=== PATIENT | male | born 1985 | race Caucasian/White ===

== ENCOUNTER 2019-07-23 18:35 | Emergency (ER) | payer MEDICAID ==
[~2019-07-23] VITALS: Ht 175.3 cm; Wt 83.9 kg
[2019-07-23 18:42] VITALS: BP_SYST 143
[2019-07-23] MEDS ORDERED: MORPHINE 2 MG/ML INJ. SYRINGE IM ONE (20:45)
[2019-07-23 22:00] VITALS: BP_SYST 138
== END 2019-07-23 22:00 | disposition home or self-care (01) ==
LOC: SED 18:35
DX: S86.812A Strain of other muscle(s) and tendon(s) at lower leg level, left leg, initial encounter (principal); Z88.0 Allergy status to penicillin; Z91.040 Latex allergy status; V18.4XXA Pedal cycle driver injured in noncollision transport accident in traffic accident, initial encounter; Y93.89 Activity, other specified; Y92.89 Other specified places as the place of occurrence of the external cause; Y99.8 Other external cause status
CPT/HCPCS: 29505; 36415; 70450; 72100; 73552; 73564; 73590; 86592; 96374; 99285; J2270

== ENCOUNTER 2019-09-25 22:48 | Inpatient (IN) | payer MEDICAID ==
[~2019-09-25] VITALS: Ht 175.3 cm; Wt 89.8 kg
[2019-09-25 23:20] VITALS: BP_SYST 128
--- NOTE | 2019-09-25 23:20 | NUR ---
Pt ambulatory to bed 7 for evaluation
--- NOTE | 2019-09-25 23:25 | NUR ---
Patient came with family. c/o lower abdominal pain x yesterday. Patient states " lower abdominal pain, no nausea , vomitting and diarrhea, lack of appetite for 2 days." A/O,X4, lower abdominal pain, pain rate 7/10, no Nausea, vomitting and diarrhea, vss.
--- NOTE | 2019-09-25 23:59 | NUR ---
ER Dr. Harris at bedside examining patient.
[2019-09-26] MEDS ORDERED: NACL 0.9% 1,000 ML IV ONE (00:06)
[2019-09-26] MEDS ORDERED: ONDANSETRON HCL 4 MG/2 ML VIAL IVP ONE (00:15)
[2019-09-26] MEDS ORDERED: MORPHINE 2 MG/ML INJ. SYRINGE IVP ONE (00:15)
--- NOTE | 2019-09-26 00:20 | NUR ---
# 20 gauge angiocath placed to LAC. Use of asceptic technique. Opsite placed over site. Blood return noted. Blood for lab drawn from site. Flushed with 10 cc of normal saline. No evidence of infiltration noted. Patient tolerated well.
[2019-09-26 00:48] LABS: BASOPHILS % (AUTO) 0.2 % (0.0-2.0); HEMATOCRIT 47.5 % (36-54); LYMPHOCYTES # (AUTO) 1.8 K/uL (1.0-5.5); LYMPHOCYTES % (AUTO) 10.2 % (20.5-51.5); MEAN CORPUSCULAR HEMOGLOBIN 30 pg (27-31); MEAN CORPUSCULAR HGB CONC 34 % (32-36); MEAN CORPUSCULAR VOLUME 90 fL (79.0-98.0); MONOCYTES # (AUTO) 1.5 K/uL (0.0-1.0); MONOCYTES % (AUTO) 8.4 % (1.7-9.3); NEUTROPHILS # (AUTO) 14.1 K/uL (1.8-7.7); NEUTROPHILS % (AUTO) 81.2 % (40.0-70.0); PLATELET COUNT (AUTO) 229 K/uL (130-430); RED CELL DISTRIBUTION WIDTH 13.4 % (9.0-15.0); WHITE BLOOD COUNT (AUTO) 17.4 K/uL (4.8-10.8)
[2019-09-26 00:51] LABS: BILIRUBIN,URINE 1+ (NEGATIVE); CLARITY/URINE CLEAR (CLEAR); COLOR,URINE YELLOW (YELLOW); GLUCOSE,URINE NEGATIVE (NEGATIVE); KETONES,URINE 1+ (NEGATIVE); LEUKOCYTE ESTERASE ,URINE 1+ (NEGATIVE); NITRITE, URINE NEGATIVE (NEGATIVE); PROTEIN URINE 1+ (NEGATIVE)
[2019-09-26 01:01] LABS: BLOOD, URINE TRACE (NEGATIVE)
[2019-09-26 01:04] LABS: CALCIUM 9.1 mg/dL (8.4-11.0); CREATININE 1.19 mg/dL (0.55-1.30); POTASSIUM 3.3 mmol/L (3.5-5.1)
[2019-09-26 01:05] LABS: BACTERIA,URINE FEW /HPF (None Seen)
[2019-09-26 01:09] LABS: ALBUMIN 3.9 g/dL (3.4-4.8); TOTAL BILIRUBIN 2.4 mg/dL (0.0-1.0)
--- NOTE | 2019-09-26 02:38 | NUR ---
Patient resting quietly. No acute distress noted. Vital signs within normal range.
--- NOTE | 2019-09-26 04:42 | NUR ---
Patient came back from CT scan.
--- NOTE | 2019-09-26 06:12 | NUR ---
ER Dr. Scherer at bedside examining patient, explained procedure/surgery and treatment plan.
[2019-09-26] MEDS ORDERED: D5/0.45 NS 1,000 ML IV SCH (06:15)
--- NOTE | 2019-09-26 06:18 | NUR ---
Patient will be admitted to care of Dr. Cleveland. Admitted to M/S unit. Will go to OR before bed assignment on floor. Belongings list completed. Complete and up to date summary report printed. SBAR report to be given at bedside with opportunity for questions.
--- NOTE | 2019-09-26 06:21 | NUR ---
Transfer to OR, RN via protocol. Licensed nurse present. IV present no signs or symptoms of infiltration.
[2019-09-26] MEDS ORDERED: LR 1,000 ML IV SCH (06:53)
[2019-09-26] MEDS ORDERED: KETOROLAC TROMETHAMINE 30 MG VIAL IVP PRN (07:00)
[2019-09-26] MEDS ORDERED: MEPERIDINE HCL/PF 25 MG/ML DISP.SYRIN IVP PRN (07:00)
[2019-09-26] MEDS ORDERED: ONDANSETRON HCL 4 MG/2 ML VIAL IVP PRN ×3 (07:00→09:15)
[2019-09-26] MEDS ORDERED: HYDROmorphone 1 MG INJ. 1 MG/ML AMPUL IVP PRN ×2 (07:00→07:15)
[2019-09-26] MEDS ORDERED: HYDROcodone/ACETAMIN 5-325 MG TAB (NORCO/ VICODIN) PO PRN ×2 (07:15→09:15)
[2019-09-26] MEDS ORDERED: LR 1,000 ML IV.SOLN IV ONE (07:20)
[2019-09-26] MEDS ORDERED: KETOROLAC TROMETHAMINE 30 MG VIAL ONE (07:20)
[2019-09-26] MEDS ORDERED: NS 1000 ML IV.SOLN IV ONE (07:20)
[2019-09-26] MEDS ORDERED: NS IRRIG SOLN 1000 ML IR ONE (07:20)
[2019-09-26] MEDS ORDERED: PROPOFOL 200MG/ 20ML VIAL (DIPRIVAN) IV ONE (07:20)
[2019-09-26] MEDS ORDERED: MEPERIDINE HCL/PF 50 MG/ML AMP ONE (07:20)
[2019-09-26] MEDS ORDERED: fentaNYL CITRATE/PF 100 MCG/2 ML AMP ONE (07:20)
[2019-09-26] MEDS ORDERED: SUCCINYLCHOLINE CHLORIDE 20 MG/ML(QUELICIN) ONE (07:20)
[2019-09-26] MEDS ORDERED: MIDAZOLAM HCL 5 MG/ML VIAL (VERSED) IV ONE (07:20)
[2019-09-26] MEDS ORDERED: ROCURONIUM BROMIDE 10 MG/ML (ZEMURON) ONE (07:20)
[2019-09-26] MEDS ORDERED: ONDANSETRON HCL 4 MG/2 ML VIAL ONE (07:20)
[2019-09-26] MEDS ORDERED: BUPIVACAINE /EPINEPHRINE/PF 0.25% 30 ML VIAL INJ ONE (07:20)
[2019-09-26] MEDS ORDERED: DEXAMETHASONE SOD PHOSPHATE 4 MG/ML VIAL ONE (07:20)
[2019-09-26] MEDS ORDERED: SEVOFLURANE 15 MIN GAS INH ONE (07:20)
[2019-09-26 08:15] VITALS: BP_SYST 116
--- NOTE | 2019-09-26 08:15 | NUR ---
Notes- Received pt from RR s/p lap appy x3 bandage with old drainage. pain is controlled at this time. LR infusing well. oriented to call light. educated on pain management and IV antibiotics. Enc for early ambulation, deep breathing and coughing. Call light in reach. Enc to call for help as needed.
[2019-09-26] MEDS ORDERED: ACETAMINOPHEN 325 MG TABLET PO PRN (09:15)
[2019-09-26] MEDS ORDERED: LORazepam 2 MG/ML VIAL IVP PRN (09:15)
[2019-09-26] MEDS ORDERED: HYDROcodone/ACETAMIN 10-325 MG TAB PO PRN (09:15)
[2019-09-26] MEDS ORDERED: MORPHINE SULFATE 10 MG/ML VIAL IVP PRN (09:15)
[2019-09-26] MEDS: NACL 0.9% 1,000 ML IV SCH ×2 (09:48→20:19)
[2019-09-26] MEDS: metroNIDAZOLE 500 mg/NS 100 ML IV SCH ×2 (09:52→20:18)
--- NOTE | 2019-09-26 10:00 | NUR ---
Pt voided 750cc in the urinal.
--- NOTE | 2019-09-26 11:19 | NUR ---
Notes- In bed, awake. Pain is controlled at this time. Antibiotics infusing well. will monitor.
--- NOTE | 2019-09-26 15:29 | NUR ---
Notes- Resting at this time. pain is controlled. Tolerating clear liquid diet. Denies any nausea or vomiting.
[2019-09-26 16:36] VITALS: BP_SYST 111
--- NOTE | 2019-09-26 18:21 | NUR ---
Notes- Resting in bed, watching tv. pain is controlled at this time. IVF infusing well. All needs meet. will endorse
--- NOTE | 2019-09-26 19:20 | NUR ---
CHANGE OF SHIFT; pt. resting when received. IV off, said its been alarming. S/P lap appy. noted slight discomfort. will assess later. call light within reach.
--- NOTE | 2019-09-26 20:00 | NUR ---
NOTES: VS checked. IV flushed and resume @ 100 cc/hr and due Iv antibiotic infused as ordered. instructed on deep breathing and encouraged to start ambulating, did not get for the day. voided per urinal. checked abdomen with 3 small dressing, with dry saturated drainage, no bleeding. started on clear liquid and been tolerating, more juice, water and jello given. able to move all extremities. on room air. call light within reach.
[2019-09-26 20:10] VITALS: BP_SYST 115
--- NOTE | 2019-09-26 20:20 | NUR ---
NOTES: pt. c/o headache, given [place] po 5/10 scale. will recheck in an hour.
--- NOTE | 2019-09-26 21:30 | NUR ---
NOTES: noted some relief from headache. pretty awake. IVF infusing. wants door closed and lights off.
[2019-09-27] VITALS: BP_SYST 107
--- NOTE | 2019-09-27 00:30 | NUR ---
NOTES: pt. checked and sleeping. no acute distress.
--- NOTE | 2019-09-27 03:32 | NUR ---
NOTES: condition observed. IVF continuous. continue to monitor.
[2019-09-27] MEDS: NACL 0.9% 1,000 ML IV SCH ×3 (04:44→21:18)
--- NOTE | 2019-09-27 04:50 | NUR ---
NOTES: pt. awakened c/o post op abdominal pain 8/10 pain scale, medicated with IV Dilaudid as ordered. instructed on deep breathing. repositioned self. IV site patent, flushed after.
[2019-09-27] MEDS: metroNIDAZOLE 500 mg/NS 100 ML IV SCH ×3 (05:55→21:18)
--- NOTE | 2019-09-27 06:00 | NUR ---
NOTES: noted relief from post op pain. pt. sleeping.
--- NOTE | 2019-09-27 06:34 | NUR ---
CLOSING NOTES; pt. awakened, still sleepy. noted relief from pain. IVF continuous and IV antibiotic infusing. instructed to start to get up and ambulate today. 3 small dressing intact, no bleed. for further care and assistance. call light within reach.
--- NOTE | 2019-09-27 07:15 | NUR ---
NOTES: Dr. Scherer called and updated on pt. status., ok to advance diet and if WBC ok and no fever, informed Megha Borrero and may go home tomorrow. endorse to day shift nurse Carrie Islas.
[2019-09-27 07:55] LABS: BASOPHILS % (AUTO) 0.1 % (0.0-2.0); EOSINOPHILS % (AUTO) 0.3 % (0.0-4.0); HEMOGLOBIN 13.3 g/dL (14.0-18.0); LYMPHOCYTES # (AUTO) 1.8 K/uL (1.0-5.5); LYMPHOCYTES % (AUTO) 17.1 % (20.5-51.5); MEAN CORPUSCULAR HEMOGLOBIN 30 pg (27-31); MEAN CORPUSCULAR HGB CONC 33 % (32-36); MEAN CORPUSCULAR VOLUME 90 fL (79.0-98.0); MONOCYTES # (AUTO) 0.8 K/uL (0.0-1.0); MONOCYTES % (AUTO) 7.6 % (1.7-9.3); NEUTROPHILS % (AUTO) 74.9 % (40.0-70.0); PLATELET COUNT (AUTO) 192 K/uL (130-430); RED BLOOD CELL COUNT(AUTO) 4.44 MIL/uL (4.2-6.2); RED CELL DISTRIBUTION WIDTH 13.4 % (9.0-15.0); WHITE BLOOD COUNT (AUTO) 10.6 K/uL (4.8-10.8)
[2019-09-27 08:00] VITALS: BP_SYST 126
--- NOTE | 2019-09-27 08:00 | NUR ---
INITIAL NOTES Sitting in the chair, eating breakfast. afebrile. pain is controlled. ambulate to the bathroom. passing gas. will advance diet as tolerated. enc. to call for help as needed. will monitor.
--- NOTE | 2019-09-27 08:05 | NUR ---
Nutrition Update Yang Scale 17 noted Pt admitted for appendicitis. Diet: Full liquid BMI: 29.2 kg/m2 RD to follow per nutrition care standards.
[2019-09-27 08:16] LABS: ALBUMIN 2.7 g/dL (3.4-4.8); CALCIUM 7.9 mg/dL (8.4-11.0); CREATININE 0.98 mg/dL (0.55-1.30); POTASSIUM 3.5 mmol/L (3.5-5.1); TOTAL BILIRUBIN 1.1 mg/dL (0.0-1.0)
[2019-09-27 08:53] LABS: C-REACTIVE PROTEIN QUANT 15.3 mg/dL (0-0.5)
[2019-09-27] MEDS: LEVOFLOXACIN 500 MG/D5W 100 ML IV SCH (09:04)
[2019-09-27 09:28] LABS: ERYTHROCYTE SEDIMENTATION RATE 10 MM/HR (0-15)
--- NOTE | 2019-09-27 10:51 | NUR ---
NOTES- SITTING IN THE CHAIR, PAIN IS CONTROLLED AT THIS TIME. NO COMPLAINTS.
[2019-09-27 12:01] VITALS: BP_SYST 112
--- NOTE | 2019-09-27 14:50 | NUR ---
Notes- Resting in bed, denies any pain or discomfort at this time. ambulate in the room. tolerating full liquid diet. will advance as tolerated.
[2019-09-27 16:15] VITALS: BP_SYST 102
--- NOTE | 2019-09-27 18:13 | NUR ---
Notes- Resting at this time. Pain is control. IVF infusing well. no acute distress noted.
--- NOTE | 2019-09-27 19:25 | NUR ---
INITIAL NOTES PATIENT IS STABLE AND LAYING IN BED. NO S/S OF RESPIRATORY DISTRESS NOTED. CALL LIGHT IN REACH. PATIENT SUCCESSFULLY DEMONSTRATES USAGE OF CALL LIGHT AT THIS TIME. BED IS LOCKED, ALARMED, AND AT THE LOWEST POSITION. FALL, SAFETY, ASPIRATION, AND RESPIRATORY PRECAUTIONS WILL BE IN PLACE THROUGHOUT THE SHIFT. PLAN OF CARE IS DISCUSSED WITH PATIENT. Addendum: 09/27/19 at 2124 by Reyes Deleon RN PATIENT EDUCATED ON THE BED ALARM, PATIENT REFUSED.
[2019-09-27 19:35] VITALS: BP_SYST 103
--- NOTE | 2019-09-27 21:25 | NUR ---
PATIENT IS LAYING IN BED AND STABLE. NO S/S OF RESPIRATORY DISTRESS NOTED. CALL LIGHT IN REACH.
--- NOTE | 2019-09-27 23:25 | NUR ---
PATIENT IS LAYING IN BED AND WATCHING TV. PATIENT IS STABLE. NO S/S OF RESPIRATORY DISTRESS NOTED. CALL LIGHT IN REACH.
[2019-09-28 00:12] VITALS: BP_SYST 117
--- NOTE | 2019-09-28 00:16 | NUR ---
PATIENT IS SLEEPING IN BED AND STABLE. NO S/S OF RESPIRATORY DISTRESS NOTED. CALL LIGHT IN REACH.
--- NOTE | 2019-09-28 02:05 | NUR ---
PATIENT IS STABLE AND SLEEPING IN BED. NO S/S OF RESPIRATORY DISTRESS NOTED. CALL LIGHT IN REACH.
--- NOTE | 2019-09-28 04:05 | NUR ---
PATIENT IS SLEEPING IN BED AND STABLE. NO S/S OF RESPIRATORY DISTRESS NOTED. CALL LIGHT IN REACH.
[2019-09-28] MEDS: metroNIDAZOLE 500 mg/NS 100 ML IV SCH (05:07)
--- NOTE | 2019-09-28 06:12 | NUR ---
CLOSING NOTES PATIENT IS STABLE AND IN BED. NO S/S OF RESPIRATORY DISTRESS. CALL LIGHT IN REACH. BED IS LOCKED, ALARMED, AND AT THE LOWEST POSITION. FALL, SAFETY, ASPIRATION, AND RESPIRATORY PRECAUTIONS HAS BEEN IN PLACE THROUGHOUT THE SHIFT. WILL CONTINUE TO MONITOR UNTIL REPORT IS ENDORSED TO AM NURSE BY BEDSIDE. Addendum: 09/28/19 at 0613 by Reyes Deleon RN BED IS LOCKED AND AT THE LOWEST POSITION. PATIENT EDUCATED ON BED ALARM, PATIENT REFUSED.*
[2019-09-28 06:57] LABS: BASOPHILS # (AUTO) 0.1 K/uL (0.0-0.2); BASOPHILS % (AUTO) 0.7 % (0.0-2.0); EOSINOPHILS # (AUTO) 0.1 K/uL (0.0-0.4); EOSINOPHILS % (AUTO) 1.5 % (0.0-4.0); HEMATOCRIT 41.1 % (36-54); HEMOGLOBIN 13.7 g/dL (14.0-18.0); LYMPHOCYTES # (AUTO) 3.3 K/uL (1.0-5.5); LYMPHOCYTES % (AUTO) 38.5 % (20.5-51.5); MEAN CORPUSCULAR HEMOGLOBIN 30 pg (27-31); MEAN CORPUSCULAR HGB CONC 33 % (32-36); MEAN CORPUSCULAR VOLUME 91 fL (79.0-98.0); MONOCYTES # (AUTO) 0.8 K/uL (0.0-1.0); MONOCYTES % (AUTO) 8.8 % (1.7-9.3); NEUTROPHILS # (AUTO) 4.4 K/uL (1.8-7.7); NEUTROPHILS % (AUTO) 50.5 % (40.0-70.0); PLATELET COUNT (AUTO) 236 K/uL (130-430); RED BLOOD CELL COUNT(AUTO) 4.53 MIL/uL (4.2-6.2); RED CELL DISTRIBUTION WIDTH 13.4 % (9.0-15.0); WHITE BLOOD COUNT (AUTO) 8.7 K/uL (4.8-10.8)
[2019-09-28 07:06] LABS: ALBUMIN 2.9 g/dL (3.4-4.8); C-REACTIVE PROTEIN QUANT 7.3 mg/dL (0-0.5); CALCIUM 8.3 mg/dL (8.4-11.0); CREATININE 0.95 mg/dL (0.55-1.30); POTASSIUM 3.3 mmol/L (3.5-5.1)
--- NOTE | 2019-09-28 07:20 | NUR ---
opening notes received bedside sbar from night RN, patient in bed, respirations even, non labored, bed in low and locked position, call light with reach
[2019-09-28 08:00] VITALS: BP_SYST 124
[2019-09-28 08:09] LABS: ERYTHROCYTE SEDIMENTATION RATE 10 MM/HR (0-15)
[2019-09-28] MEDS: NACL 0.9% 1,000 ML IV SCH (08:40)
[2019-09-28] MEDS: LEVOFLOXACIN 500 MG/D5W 100 ML IV SCH (09:58)
--- NOTE | 2019-09-28 10:00 | NUR ---
nurse notes patient in bed, respirations even, non labored, bed in low and locked position, call light within reach
[2019-09-28] MEDS ORDERED: HYDR-4272 PO (11:51)
[2019-09-28 12:00] VITALS: BP_SYST 112
[2019-09-28 12:08] VITALS: BP_SYST 112
[2019-09-28 12:22] VITALS: BP_SYST 112
--- NOTE | 2019-09-28 13:50 | NUR ---
DischargeD/C Patient Patient given medication reconciliation form and D/C instructions. Exit Care provided. Patient verbalized understanding. Ambulatory with steady gait for discharge to home. Patient in stable condition, ID band removed. IV catheter removed, intact and dressing applied, no active bleeding. Rx of [place] given. Patient educated on pain management. All belongings sent with patient. Patient wheeled to parking lot via wheelchair.
== END 2019-09-28 13:55 | disposition home or self-care (01) | DRG 234 ==
LOC: SED 22:48 → SMU 09-26 06:15
PROVIDERS: ADMIT Preventive Medicine Preventive Medicine/Occupational Environmental Medicine; ATTEND Preventive Medicine Preventive Medicine/Occupational Environmental Medicine
PROC: 0DTJ4ZZ Resection of Appendix, Percutaneous Endoscopic Approach (ICD-10-PCS; principal; 2019-09-26 06:00)
DX: K35.80 Unspecified acute appendicitis (principal); E43 Unspecified severe protein-calorie malnutrition; R65.10 Systemic inflammatory response syndrome (SIRS) of non-infectious origin without acute organ dysfunction; R17 Unspecified jaundice; E83.51 Hypocalcemia; E87.6 Hypokalemia; R73.9 Hyperglycemia, unspecified; G47.00 Insomnia, unspecified; Z72.0 Tobacco use; Z88.0 Allergy status to penicillin; Z91.040 Latex allergy status; Z68.29 Body mass index [BMI] 29.0-29.9, adult
CPT/HCPCS: 36415; 80053; 81000-TC; 83690-TC; 85025; 85651-TC; 86140; 87040-TC; 87070; 87070-TC; 87075-TC; 87086; 88304; 96361; 96374; 96375; 99285; C1727; J0330; J1100; J1170; J1885; J1956; J2175; J2250; J2270; J2405; J2704; J3010; J3490; J7030; J7120

== ENCOUNTER 2019-11-23 09:03 | Emergency (ER) | payer MEDICAID ==
[~2019-11-23] VITALS: Ht 167.6 cm; Wt 95.3 kg
[~2019-11-23 09:03] MED LIST: HYDR-4272 PO
[2019-11-23 09:05] VITALS: BP_SYST 128
--- NOTE | 2019-11-23 09:20 | NUR ---
Patient to ER bed 03 to gown for evaluation. Side rails up.
--- NOTE | 2019-11-23 09:22 | NUR ---
Patient arrived in the ED c/o left knee pain s/p fall after jumping off a wall. Denied any chest pain or shortness of breath. Denied any fevers, chills, nausea or vomiting. Patient is alert and oriented x4, respirations even and unlabored, speaking in full sentences, and ambulating with a steady gait. VSS, pain level 7/10. Informed of the approximate wait time. Instructed to notify ED staff for any changes in condition or worsening of symptoms while waiting to be seen by an ED provider. Patient verbalized understanding.
--- NOTE | 2019-11-23 09:33 | NUR ---
DELIA Ordoñez at bedside examining patient.
--- NOTE | 2019-11-23 09:40 | NUR ---
Administered Toradol IM as ordered by Dr. Ordoñez. Patient tolerated the medications well. See eMAR for details.
[2019-11-23] MEDS ORDERED: KETOROLAC TROMETHAMINE 30 MG VIAL IM ONE (09:45)
--- NOTE | 2019-11-23 09:51 | NUR ---
X-ray done at bedside as ordered by Dr. Ordoñez. Patient tolerated the procedure well.
[2019-11-23 10:54] VITALS: BP_SYST 128
--- NOTE | 2019-11-23 10:54 | NUR ---
ER MD discussed with the patient the results and treatment provided. Patient given written and verbal discharge instructions and verbalized understanding. Opportunity for questions provided and answered. Patient in stable condition, last set of vital signs within normal limits, pain scale 0/10, speaking in full sentences and ambulated with a steady gait upon discharge. ID arm band removed. Rx for Ibuprofen given. Patient educated on pain management and to follow up with PMD. Medication side effect fact sheet provided.
== END 2019-11-23 10:54 | disposition home or self-care (01) ==
LOC: SED 09:03
DX: M25.562 Pain in left knee (principal); Z88.0 Allergy status to penicillin; Z91.040 Latex allergy status; Z79.899 Other long term (current) drug therapy
CPT/HCPCS: 73564; 96372; 99283; J1885